=== PATIENT | female | born 2000 | race Two or more races ===

== ENCOUNTER 2021-08-20 05:06 | Emergency (ER) | payer BC, SELFPAY ==
[2021-08-20 05:13] VITALS: BP 124/71; BP 124/86; PULSE 110; PULSE 84; RESP 18; TEMP 36.9; O2SAT 98; O2SAT 99; BMI 21.9
--- NOTE | 2021-08-20 05:29 | ED.ABDPAIN ---
HPI - Abdominal Pain General Chief Complaint: Abdominal Pain Stated Complaint: N/V Time Seen by Provider: 08/20/21 05:28 Source: patient Mode of arrival: EMS Limitations: no limitations History of Present Illness HPI narrative: Nausea and vomiting for 7 days. MD elicited complaint: abdominal pain Onset (ago): day(s) Severity: moderate Exacerbating factors: eating Relieving factors: nothing Associated symptoms: nausea and vomiting Related Data Home Medications Medication Instructions Recorded Confirmed ondansetron 4 mg disintegrating 4 mg PO Q8H PRN 08/22/21 08/22/21 tablet pantoprazole 40 mg tablet,delayed 40 mg PO DAILY@0630 08/22/21 08/22/21 release (Protonix) Previous Rx's Medication Instructions Recorded escitalopram oxalate 5 mg tablet 10 mg PO BEDTIME 30 Days #60 tab 08/24/21 Allergies Allergy/AdvReac Type Severity Reaction Status Date / Time No Known Allergies Allergy Verified 08/20/21 05:30 Review of Systems Constitutional: Reports no additional constitutional complaints Eyes: Reports no additional eye complaints Denies dizziness Cardiovascular: Reports no additional cardiovascular complaints Respiratory: Reports as per HPI Gastrointestinal: Reports no additional gastrointestinal complaints Genitourinary: Reports no additional female genitourinary complaints Musculoskeletal: Reports no additional musculoskeletal complaints Skin/Breast: Denies rash Reports system reviewed and no additional complaints, except as documented, Denies dizziness and Denies Sensory deficit (Neuro) Psychiatric: Denies anxiety [facility] Past Medical History Medical History (Updated 08/28/21 @ 00:03 by Background Daemon) Migraine headache Social History Social History Patient Tobacco Use Status: Current everyday Tobacco user Tobacco use type: Smokeless Tobacco service: No Current occupational status: student Physical Exam ED Vital Signs: Vital Signs - 24 hr 08/20/21 05:13 Temperature 98.5 F Pulse Rate 84 Respiratory Rate 18 Blood Pressure 124/71 Pulse Oximetry 99 BMI result Body Mass Index 21.9 Const General: healthy appearing Nutritional Appearance: average body habitus Orientation/consciousness: oriented to person and patient oriented x3 Limitations: no limitations HENMT Head: Yes normal to inspection Ears: external ears normal General nose exam: Normal external nose present Mouth: Normal oral and palatal mucosa present and oropharynx normal Throat: Yes posterior oropharynx normal Eyes General: appearance normal, both eyes and all related structures Neck Neck: Yes normal visual inspection Chest Chest palpation & inspection: normal inspection of the chest Resp Auscultation: clear to auscultation bilaterally Cardio Jugular venous distension: no JVD Rate: regular rate Rhythm: regular rhythm Heart sounds: S1 normal heart sound present and S2 normal heart sound present GI Inspection: Yes normal to inspection Palpation (GI): Soft to palpation, nontender and No hepatosplenomegaly present Auscultation: normal bowel sounds General: Yes no CVA tenderness Back/Spine/Pelvis Back: no CVA tenderness Skin General skin exam: no rashes or lesions noted Neuro General: oriented to person and patient oriented x3 Cranial nerves: Yes CN's II-XII intact bilaterally Motor exam (neuro): 5/5 motor strength present throughout Sensory Exam: No Sensory deficit (Neuro) Extrem General: Yes normal to inspection Psych Appearance: grossly normal Course Reevaluation(s) Reevaluation #1: Patient getting hydrated and receiving zofran, awaiting labs Time: 06:54 Reevaluation #2: Awaiting for ua and urine Time: 07:08 MDM - Abdominal Pain Lab Data Result diagrams: 08/20/21 06:21 08/20/21 06:21 Labs: Lab Results 08/20/21 08/20/21 08/20/21 Range/Units 06:21 06:21 06:21 WBC 9.8 (4.8-10.8) X10*3/uL RBC 3.94 L (4.20-5.50) X10*6/uL Hgb 12.0 (12.0-16.0) g/dl Hct 35.3 L (37.0-47.0) % MCV 89.6 (80.0-98.0) fL MCH 30.5 (27.0-33.0) pg MCHC 34.0 (31.0-35.0) g/dl RDW 11.4 (11.0-16.0) % Plt Count 244 (160-400) X10*3/uL MPV 10.0 (9.4-12.3) fL Immature Gran % (Auto) 0.7 H (0.0-0.4) % Neut % (Auto) 79.9 H (45-73) % Lymph % (Auto) 15.5 L (20-40) % [place] % (Auto) 3.5 (2-11) % Eos % (Auto) 0.1 (0-4) % Baso % (Auto) 0.3 (0-2) % Lymph # (Auto) 1.5 (1.2-4.9) X10*3/uL [place] # (Auto) 0.3 (0.1-1.2) X10*3/uL Eos # (Auto) 0.0 (0.0-0.4) X10*3/uL Baso # (Auto) 0.0 (0.0-0.2) X10*3/uL Abs Immat Gran (auto) 0.07 H (0.00-0.03) X10*3/uL Absolute Neuts (auto) 7.9 (2.0-8.3) x10*3/uL Absolute Nucleated RBC 0.000 (0.0-0.012) X10*3/uL Nucleated RBC % (auto) 0.0 (0.0-0.2) /100WBC Sodium 139 (135-145) mmol/L Potassium 3.9 (3.3-5.1) mmol/L Chloride 107 (96-108) mmol/L Carbon Dioxide 22 (22-29) mmol/L Anion Gap 14 (12-20) BUN 12 (9-16) mg/dL Creatinine 0.66 (0.5-1.4) mg/dL Estim Creat Clear Calc 106.6 Estimated GFR > 60 Random Glucose 97 (60-115) mg/dL Calcium 8.9 (8.4-10.2) mg/dL Total Bilirubin 0.6 (0.0-1.0) mg/dL Direct Bilirubin 0.3 (0.0-0.5) mg/dL AST 20 (5-31) U/L ALT 23 (0-31) U/L Alkaline Phosphatase 55 (39-117) U/L Total Protein 6.5 (6.5-8.0) g/dL Albumin 4.2 (3.5-5.0) g/dL Lipase 25 (8-78) U/L Urine Color Urine Appearance Urine pH (5.0-8.0) Ur Specific [place] (1.005-1.025) Urine Protein (NEG-TRACE) MG/DL Urine Glucose (UA) (NEG) MG/DL Urine Ketones (NEG) MG/DL Urine Blood (NEG) Urine Nitrite (NEG) Ur Leukocyte Esterase (NEG) Urine RBC (0) /HPF Urine WBC (0-4) /HPF Ur Squamous Epith Cells /LPF Urine Bacteria /LPF Urine Test (NEGATIVE) COVID-19 (PERRY) Negative (Negative) COVID-19 Clin Com See Note 08/20/21 08/20/21 Range/Units 07:53 07:53 WBC (4.8-10.8) X10*3/uL RBC (4.20-5.50) X10*6/uL Hgb (12.0-16.0) g/dl Hct (37.0-47.0) % MCV (80.0-98.0) fL MCH (27.0-33.0) pg MCHC (31.0-35.0) g/dl RDW (11.0-16.0) % Plt Count (160-400) X10*3/uL MPV (9.4-12.3) fL Immature Gran % (Auto) (0.0-0.4) % Neut % (Auto) (45-73) % Lymph % (Auto) (20-40) % [place] % (Auto) (2-11) % Eos % (Auto) (0-4) % Baso % (Auto) (0-2) % Lymph # (Auto) (1.2-4.9) X10*3/uL [place] # (Auto) (0.1-1.2) X10*3/uL Eos # (Auto) (0.0-0.4) X10*3/uL Baso # (Auto) (0.0-0.2) X10*3/uL Abs Immat Gran (auto) (0.00-0.03) X10*3/uL Absolute Neuts (auto) (2.0-8.3) x10*3/uL Absolute Nucleated RBC (0.0-0.012) X10*3/uL Nucleated RBC % (auto) (0.0-0.2) /100WBC Sodium (135-145) mmol/L Potassium (3.3-5.1) mmol/L Chloride (96-108) mmol/L Carbon Dioxide (22-29) mmol/L Anion Gap (12-20) BUN (9-16) mg/dL Creatinine (0.5-1.4) mg/dL Estim Creat Clear Calc Estimated GFR Random Glucose (60-115) mg/dL Calcium (8.4-10.2) mg/dL Total Bilirubin (0.0-1.0) mg/dL Direct Bilirubin (0.0-0.5) mg/dL AST (5-31) U/L ALT (0-31) U/L Alkaline Phosphatase (39-117) U/L Total Protein (6.5-8.0) g/dL Albumin (3.5-5.0) g/dL Lipase (8-78) U/L Urine Color YELLOW Urine Appearance CLEAR Urine pH 5.5 (5.0-8.0) Ur Specific [place] 1.010 (1.005-1.025) Urine Protein NEG (NEG-TRACE) MG/DL Urine Glucose (UA) NEG (NEG) MG/DL Urine Ketones >=80 (NEG) MG/DL Urine Blood TRACE (NEG) Urine Nitrite NEG (NEG) Ur Leukocyte Esterase NEG (NEG) Urine RBC 0-2 (0) /HPF Urine WBC 0-2 (0-4) /HPF Ur Squamous Epith Cells TRACE /LPF Urine Bacteria NONE /LPF Urine Test NEGATIVE (NEGATIVE) COVID-19 (PERRY) (Negative) COVID-19 Clin Com Discharge Plan Discharge Clinical Impression: Gastritis, Nausea & vomiting Patient Disposition: Home, Self-Care Instructions: Gastritis (ED), Acute Nausea and Vomiting (ED) Prescriptions: No Action pantoprazole [Protonix] 40 mg tablet,delayed release (DR/EC) 40 mg PO DAILY@0630 0RF ondansetron 4 mg tablet,disintegrating 4 mg PO Q8H PRN (Reason: Nausea And Vomiting) 0RF escitalopram oxalate 5 mg Tablet 10 mg PO BEDTIME 30 Days Qty: 60 0RF Referrals: Physician,None [Primary Care Provider] - 1 week Interventions: ED Discharge Assessment Last Done: 08/20/21 08:49 Discharge Date/Time: 08/20/21 08:52
[2021-08-20] MEDS: 0.9 % Sodium Chloride 1,000 ML 999 ML IVCONT ×2 (06:22→06:31)
[2021-08-20] MEDS: ondansetron HCL 4 MG/2 ML VIAL IVPUSH (06:25)
[2021-08-20] MEDS: Pantoprazole Sodium 40 MG/10 ML VIAL IVPUSH (06:25)
[2021-08-20 06:38] LABS: MANUAL DIFF FLAG NO
[2021-08-20 06:48] LABS: Basophils Percent Auto 0.3 % (0-2); Eosinophils Percent Auto 0.1 % (0-4); Hematocrit 35.3 % (37.0-47.0); Imm Gran Abs Auto 0.07 X10*3/uL (0.00-0.03); Imm Gran Pct Auto 0.7 % (0.0-0.4); Lymphocytes Absolute Auto 1.5 X10*3/uL (1.2-4.9); Lymphocytes Percent Auto 15.5 % (20-40); Mean Corpuscular Hemoglobin 30.5 pg (27.0-33.0); Mean Corpuscular Volume 89.6 fL (80.0-98.0); Monocytes Absolute Auto 0.3 X10*3/uL (0.1-1.2); Monocytes Percent Auto 3.5 % (2-11); Neutrophils Absolute Auto 7.9 x10*3/uL (2.0-8.3); Neutrophils Percent Auto 79.9 % (45-73); Platelet Count 244 X10*3/uL (160-400); Red Blood Count 3.94 X10*6/uL (4.20-5.50); Red Cell Distribution Width 11.4 % (11.0-16.0); White Blood Count 9.8 X10*3/uL (4.8-10.8)
[2021-08-20 06:51] LABS: COVID-19 Test Negative (Negative); IDNOW Serial# 55D5AD1C
[2021-08-20 06:55] LABS: Alanine Aminotransferase 23 U/L (0-31); Albumin Level 4.2 g/dL (3.5-5.0); Alkaline Phosphatase 55 U/L (39-117); Anion Gap 14 (12-20); Aspartate Amino Transferase 20 U/L (5-31); Bilirubin Direct 0.3 mg/dL (0.0-0.5); Bilirubin Total 0.6 mg/dL (0.0-1.0); Blood Urea Nitrogen 12 mg/dL (9-16); Calcium 8.9 mg/dL (8.4-10.2); Carbon Dioxide 22 mmol/L (22-29); Chloride 107 mmol/L (96-108); Creatinine Clr Calc Pharmacy 106.6; Estimated Glomerular Filt Rate > 60; Glucose Random 97 mg/dL (60-115); Lipase 25 U/L (8-78); Potassium 3.9 mmol/L (3.3-5.1); Sodium 139 mmol/L (135-145); Total Protein 6.5 g/dL (6.5-8.0)
[2021-08-20 07:12] VITALS: BP 108/63; PULSE 104; O2SAT 100
[2021-08-20 07:59] LABS: Appearance Urine CLEAR; Color Urine YELLOW; Glucose Urine UA NEG (NEG); Leukocyte Esterase Urine NEG (NEG); Nitrite Urine NEG (NEG); PH 5.5 (5.0-8.0); UACC Culture Trigger NO; Urine Blood TRACE (NEG); Urine Ketones >=80 MG/DL (NEG); Urine Protein NEG (NEG-TRACE)
[2021-08-20 08:01] LABS: UPreg QC Valid YES; Urine Pregnancy NEGATIVE (NEGATIVE)
[2021-08-20] MEDS: Ondansetron ODT 4 MG TAB.RAPDIS TRANSLINGU (08:37)
[2021-08-20 09:00] LABS: RBC Urine 0-2 /HPF (0); Squamous Epithelial Cell Urine TRACE /LPF; WBC Urine 0-2 /HPF (0-4)
== END 2021-08-20 08:52 | disposition home or self-care (01) ==
PROVIDERS: Emergency Provider Emergency Medicine
DX: K29.70 Gastritis, unspecified, without bleeding (principal); R11.2 Nausea with vomiting, unspecified; Z20.822 Contact with and (suspected) exposure to COVID-19; F17.200 Nicotine dependence, unspecified, uncomplicated
CPT/HCPCS: 36415; 80048; 80076; 81001; 81025; 83690; 85025; 87635; 96361; 96374; 96375; 99284; J2405

== ENCOUNTER 2021-08-22 07:53 | Observation (INO) | payer BC, SELFPAY ==
[2021-08-22] VITALS (12 sets, daily range): BP systolic 98–120; BP diastolic 53–88; PULSE 85–124; RESP 14–22; TEMP 36.6–37.3; O2SAT 95–100; BMI 21.7
--- NOTE | 2021-08-22 08:09 | ED.NAVMDI ---
HPI - Nausea/Vomiting/Diarrhea General Chief complaint: Nausea/Vomiting/Diarrhea Stated complaint: vomiting with blood Time Seen by Provider: 08/22/21 08:06 Source: patient and EMS Mode of arrival: EMS Limitations: no limitations History of Present Illness HPI Narrative: 21-year-old female return to the emergency department for evaluation of persistent vomiting. Patient was seen and evaluated in the emergency department for 5 days of vomiting, patient was sent home on Zofran and Protonix return back today for persistent vomiting, patient claimed that she cannot take any p.o., normal bowel movement, normal urination, no history of drinking alcohol or using drugs in particular no use of marijuana. Patient reported that the vomit sometimes containing streaks of blood. Patient otherwise decline abdominal pain, no diarrhea, no recent travel. 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 Never had intra-abdominal surgery. Related Data Previous Rx's Medication Instructions Recorded ondansetron 4 mg disintegrating 4 mg PO Q8H 4 Days #12 tab 08/20/21 tablet pantoprazole 40 mg tablet,delayed 40 mg PO DAILY #20 tab 08/20/21 release (Protonix) Allergies Allergy/AdvReac Type Severity Reaction Status Date / Time No Known Allergies Allergy Verified 08/20/21 05:30 Review of Systems Review of Systems: All other systems are reviewed and are negative Constitutional: Reports as per HPI and Reports no additional constitutional complaints Eyes: Reports as per HPI and Reports no additional eye complaints Reports system reviewed and no additional complaints, except as documented Cardiovascular: Reports as per HPI and Reports no additional cardiovascular complaints Respiratory: Reports as per HPI and Reports no additional respiratory complaints Gastrointestinal: Reports as per HPI and Reports no additional gastrointestinal complaints Genitourinary: Reports no additional female genitourinary complaints Musculoskeletal: Reports no additional musculoskeletal complaints Skin/Breast: Reports system reviewed and no additional complaints, except as docu Psychiatric: Reports no additional psychiatric complaints Endocrine: Reports no additional endocrine complaints Hematologic/Lymphatic: Reports no additional hematologic/lymphatic complaints Allergic/Immunologic: Reports no additional allergic/immunologic complaints Reports system reviewed and no additional complaints, except as documented and Reports Abnormal speech present [facility] Social History Social History Advance Directives: No Advance Directives Information Provided: No Physical Exam Vital Signs: Vital Signs: Last Vital Signs Temp 98.7 F 08/22/21 08:36 Pulse 100 08/22/21 08:36 Resp 14 08/22/21 08:36 BP 117/71 08/22/21 08:36 Pulse Ox 98 08/22/21 08:36 BMI result Body Mass Index 21.7 Vital signs have been reviewed as appeared to be correct. Blood pressure normal. Heart rate normal. Respiration rate normal. Temperature normal. Oxygen saturation normal. Appearance: Alert. Oriented X3. No acute distress. Head: Normal external exam. Normocephalic. Atraumatic. No [place] signs noted. No raccoon eyes noted Eyes: PERRLA. EOMI. Conjunctiva and sclera normal. Eyelids normal. ENT: TM's Normal. Pharynx normal. Uvula midline. Moist mucous membranes. No trismus noted. No drooling noted. No muffled voice noted. Neck: Normal inspection. Neck supple. FROM. No adenopathy. Thyroid Normal. No meningeal signs. No neck mass noted. CVS: Normal heart rate and rhythm. Heart sound normal. No murmurs noted. Pulses normal throughout. Respiratory: No respiratory distress. Painless inspiration. Breath sounds normal. No wheezes/rales/rhonchi noted. Chest nontender. No accessory muscle usage noted or decreased air movement noted. Abdomen: Soft and nontender. Bowel sounds normal in all 4 quadrants. No distention noted. No organomegaly noted. No visible injury noted. Back: No CVA tenderness. Full range of motion noted. Skin: Skin warm and dry. Normal skin color. Normal skin turgor. No rashes/lesions/lacerations noted. Extremities: No lower extremity edema. Extremities exhibit normal range of motion. Extremities nontender. Neuro: Oriented X 3. Cranial nerve exam: II-XII are grossly intact No motor deficit. No sensory deficit. Reflexes normal. Course Course Course Narrative: Assessment and plan. 21-year-old female return to the emergency department for intractable vomiting, patient declined any history alcohol/drug abuse, no abdominal pain or tenderness, patient still feeling nauseous and vomiting in the ED despite IV antinausea medication with hydration. Will admit the patient for intractable vomiting. MDM - Nausea/Vomiting/Diarrhea Lab Data Attestation: I reviewed the patient's lab results. Result diagrams: 08/22/21 08:22 08/22/21 08:22 Labs: Lab Results 08/22/21 08/22/21 Range/Units 08:22 08:22 WBC 9.1 (4.8-10.8) X10*3/uL RBC 4.03 L (4.20-5.50) X10*6/uL Hgb 12.5 (12.0-16.0) g/dl Hct 35.9 L (37.0-47.0) % MCV 89.1 (80.0-98.0) fL MCH 31.0 (27.0-33.0) pg MCHC 34.8 (31.0-35.0) g/dl RDW 11.4 (11.0-16.0) % Plt Count 252 (160-400) X10*3/uL MPV 9.8 (9.4-12.3) fL Immature Gran % (Auto) 0.3 (0.0-0.4) % Neut % (Auto) 81.0 H (45-73) % Lymph % (Auto) 15.1 L (20-40) % [place] % (Auto) 3.3 (2-11) % Eos % (Auto) 0.1 (0-4) % Baso % (Auto) 0.2 (0-2) % Lymph # (Auto) 1.4 (1.2-4.9) X10*3/uL [place] # (Auto) 0.3 (0.1-1.2) X10*3/uL Eos # (Auto) 0.0 (0.0-0.4) X10*3/uL Baso # (Auto) 0.0 (0.0-0.2) X10*3/uL Abs Immat Gran (auto) 0.03 (0.00-0.03) X10*3/uL Absolute Neuts (auto) 7.4 (2.0-8.3) x10*3/uL Absolute Nucleated RBC 0.000 (0.0-0.012) X10*3/uL Nucleated RBC % (auto) 0.0 (0.0-0.2) /100WBC Sodium 140 (135-145) mmol/L Potassium 4.4 (3.3-5.1) mmol/L Chloride 106 (96-108) mmol/L Carbon Dioxide 24 (22-29) mmol/L Anion Gap 14 (12-20) BUN 10 (9-16) mg/dL Creatinine 0.76 (0.5-1.4) mg/dL Estim Creat Clear Calc 92.6 Estimated GFR > 60 Random Glucose 116 H (60-115) mg/dL Calcium 9.4 (8.4-10.2) mg/dL Total Bilirubin 0.8 (0.0-1.0) mg/dL Direct Bilirubin 0.3 (0.0-0.5) mg/dL AST 19 (5-31) U/L ALT 23 (0-31) U/L Alkaline Phosphatase 60 (39-117) U/L Total Protein 7.1 (6.5-8.0) g/dL Albumin 4.5 (3.5-5.0) g/dL Lipase 34 (8-78) U/L Discharge Plan Discharge Clinical Impression: Intractable vomiting Patient Disposition: Admitted As Inpatient Prescriptions: No Action pantoprazole [Protonix] 40 mg tablet,delayed release (DR/EC) 40 mg PO DAILY Qty: 20 0RF ondansetron 4 mg tablet,disintegrating 4 mg PO Q8H 4 Days Qty: 12 0RF
[2021-08-22] MEDS: Famotidine/PF 20 MG/2 ML VIAL IVPUSH ×2 (08:30→13:39)
[2021-08-22] MEDS: 0.9 % Sodium Chloride 1,000 ML 999 ML IV (08:30)
[2021-08-22] MEDS: ondansetron HCL 4 MG/2 ML VIAL IVPUSH ×3 (08:30→22:24)
[2021-08-22 08:31] LABS: MANUAL DIFF FLAG NO
[2021-08-22 08:40] LABS: Basophils Percent Auto 0.2 % (0-2); Eosinophils Percent Auto 0.1 % (0-4); Hematocrit 35.9 % (37.0-47.0); Hemoglobin 12.5 g/dl (12.0-16.0); Imm Gran Abs Auto 0.03 X10*3/uL (0.00-0.03); Imm Gran Pct Auto 0.3 % (0.0-0.4); Lymphocytes Absolute Auto 1.4 X10*3/uL (1.2-4.9); Lymphocytes Percent Auto 15.1 % (20-40); Mean Corpuscular HGB Conc 34.8 g/dl (31.0-35.0); Mean Corpuscular Volume 89.1 fL (80.0-98.0); Mean Platelet Volume 9.8 fL (9.4-12.3); Monocytes Absolute Auto 0.3 X10*3/uL (0.1-1.2); Monocytes Percent Auto 3.3 % (2-11); Neutrophils Absolute Auto 7.4 x10*3/uL (2.0-8.3); Platelet Count 252 X10*3/uL (160-400); Red Blood Count 4.03 X10*6/uL (4.20-5.50); Red Cell Distribution Width 11.4 % (11.0-16.0); White Blood Count 9.1 X10*3/uL (4.8-10.8)
[2021-08-22 08:47] LABS: Alanine Aminotransferase 23 U/L (0-31); Anion Gap 14 (12-20); Aspartate Amino Transferase 19 U/L (5-31); Bilirubin Direct 0.3 mg/dL (0.0-0.5); Bilirubin Total 0.8 mg/dL (0.0-1.0); Blood Urea Nitrogen 10 mg/dL (9-16); Calcium 9.4 mg/dL (8.4-10.2); Carbon Dioxide 24 mmol/L (22-29); Chloride 106 mmol/L (96-108); Creatinine Clr Calc Pharmacy 92.6; Estimated Glomerular Filt Rate > 60; Glucose Random 116 mg/dL (60-115); Potassium 4.4 mmol/L (3.3-5.1); Sodium 140 mmol/L (135-145)
[2021-08-22 08:48] LABS: Albumin Level 4.5 g/dL (3.5-5.0); Alkaline Phosphatase 60 U/L (39-117); Lipase 34 U/L (8-78); Total Protein 7.1 g/dL (6.5-8.0)
--- NOTE | 2021-08-22 10:19 | PHA.MEDREC ---
Pharmacy Consult ? Medication Reconciliation Pharmacy has completed the medication reconciliation.
--- NOTE | 2021-08-22 11:42 | P.HPHOSP_ITS ---
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 Starting 3 weeks ago, she was having episode of vomitting mainly in the morning but the last 3 days or so has been having intractable nausea and vomitting almost every 10 to 15 minutes, theer is no assocated abdominal pain, not associated with food. She does not drink, use drugs or marijuana. She was seen in ED 2 days earlier and discharge with oral zofran and Protonix with litlle relief and overnight was constantly throwing up so came back to the ED.. test 2 days ago was negative. As result of the nausea and vomitting she lost nearly all apetite and hardly eating believed she has lost 7 to 8 Ib.. Labs are otherwise unremarkable Review of Systems Review of Systems: Gen: no fever Resp: no sob, no cough CV: no chest, no KELSEY, no leg edema GI: + n/v, no abd pain Neuro: No confusion Yes all other systems are reviewed and are negative [facility] Medical History (Updated 08/22/21 @ 14:35 by Monique Kebede MD) Migraine headache Pertinent family history: She reports no family history of chronic abdominal issues, but thinks her mom sufffered Helicobateria related GI issue at some point Social History Patient Tobacco Use Status: Current everyday Tobacco user Tobacco use type: Smokeless Tobacco Meds Allergies Allergy/AdvReac Type Severity Reaction Status Date / Time No Known Allergies Allergy Verified 08/20/21 05:30 Active Medications: Current Medications Famotidine (Famotidine/Pf 20 Mg/2 Ml Vial) 20 mg IVPUSH BID TALIA Dextrose/Sodium Chloride (D51/2ns) 1,000 mls @ 100 mls/hr IVCONT .Q10H TALIA Ondansetron HCl (Ondansetron Hcl 4 Mg/2 Ml Vial) 4 mg IVPUSH Q8H PRN PRN Reason: Nausea and Vomiting Pharmacy Consult (Consult Rx Perform Med Rec) 1 each MISCELLANE ONCE PRN PRN Reason: Consult order Sodium Chloride (0.9 % Sodium Chloride Flush 3 Ml Syringe) 3 ml IVFLUSH QSHIFT [facility] Home Medications Medication Instructions Recorded Confirmed Last Taken Type ondansetron 4 mg disintegrating 4 mg PO Q8H PRN 08/22/21 08/22/21 08/22/21 His tory tablet pantoprazole 40 mg tablet,delayed 40 mg PO DAILY@0630 08/22/21 08/22/21 08/22/21 History release (Protonix) Physical Exam Vital Signs and Narrative: Vital Signs: Last Vital Signs Temp 98.7 F 08/22/21 08:36 Pulse 100 08/22/21 08:36 Resp 14 08/22/21 08:36 BP 117/71 08/22/21 08:36 Pulse Ox 98 08/22/21 08:36 BMI result Body Mass Index 21.7 Const: Other: Constitutional: Alert, in no distress Mental Status: Oriented to person, place and time. Eyes: Pupils are equal, round and reactive to light. Ear, Nose and Throat: essentially normal Respiratory: Clear to auscultation. No wheezing, rales or rhonchi. Cardiovascular: S1 S2 regular. No murmurs, rubs or gallops. Gastrointestinal: Abdomen soft, non-tender, non-distended. Normal bowel sounds.? Neurologic: Cranial nerves II-XII grossly intact. No focal neurological deficits. Moves all extremities spontaneously.? Skin: No rashes or lesions.? Musculoskeletal: No cyanosis or clubbing. Psychiatric: Normal mood and affect? Results Labs CBC and Chem 7: 08/22/21 08:22 08/22/21 08:22 Labs: Laboratory Results - last 24 hr 08/22/21 08/22/21 08:22 08:22 MCV 89.1 MCH 31.0 MCHC 34.8 RDW 11.4 Plt Count 252 MPV 9.8 Immature Gran % (Auto) 0.3 Neut % (Auto) 81.0 H Lymph % (Auto) 15.1 L [place] % (Auto) 3.3 Eos % (Auto) 0.1 Baso % (Auto) 0.2 Lymph # (Auto) 1.4 [place] # (Auto) 0.3 Eos # (Auto) 0.0 Baso # (Auto) 0.0 Abs Immat Gran (auto) 0.03 Absolute Neuts (auto) 7.4 Absolute Nucleated RBC 0.000 Nucleated RBC % (auto) 0.0 Anion Gap 14 Estim Creat Clear Calc 92.6 Estimated GFR > 60 Random Glucose 116 H Calcium 9.4 Total Bilirubin 0.8 Direct Bilirubin 0.3 AST 19 ALT 23 Alkaline Phosphatase 60 Total Protein 7.1 Albumin 4.5 Lipase 34 Assessment and Plan (1) Intractable vomiting: Status: Acute (2) Anxiety: Status: Acute Plan health with now intractable nausea and vomitting associated with weight loss. Plan: Hydrate, antiemetics, IV Pepcid, GI eval given severe nature. Check Utox for marijuana Quality Stroke Does the patient have a stroke diagnosis?: No VTE Prior VTE?: No VTE Risk Level:: Medical - low VTE Device Contraindication: Treatment Not Indicated VTE Drug Contraindication: Treatment Not Indicated
[2021-08-22 13:12] LABS: COVID-19 Test Negative (Negative)
[2021-08-22] MEDS: Dextrose 5 % and 0.45 % NaCl 1,000 ML 100 ML IVCONT ×2 (13:22→22:27)
--- NOTE | 2021-08-22 13:36 | P.CNGI_ITS ---
History of Present Illness Data of Consult Service Date: 08/22/21 Requesting physician: Sage Romo Primary Care Provider: None Physician HPI Reason for consult: nausea and vomiting 21 year old [place] female (international student from [employer]) with SJ seen at [facility] ED on 08/22/21 with intractable nause and vomitting. Pt reports having episodes of vomiting in the morning since the past 3 weeks. She has been having intractable nausea and vomiting almost every 10 to 15 minutes for the past 3 days. Pt denies association of symptoms with food. She complains of upper abdominal pain after several bouts of vomiting. She denies ETOH or drug abuse. She admits to smoking marijuana and vaping a few times a week. Pt was seen in ED 2 days earlier and discharge with oral zofran and Protonix with minimal relief and overnight? was constantly throwing up. She came back to the ED. test 2 days ago was negative. As result of the nausea and vomiting she has no appetite and her PO intake has been minimal and and she has lost 7 to 8 Ib. Labs in the ED were normal. Utox positive for cannabis, however reports very occasional use. Pt was admitted for further management. Pt admitted to significant anxiety due to her studies and social issues. 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 anxiety has been worsening. Pt has had several stressful events during her college career and has been increasingly isolated due to the pandemic, has struggled to make friends at college, has not been home in [place] x 2 years. Pt is ambitious and a perfectionist, wants to graduate with highest honors and go to grad school for engineering. Feels she has to get straight As. She also worries about the financial burden of her student loans on her mom. Pt says ?all I do is study,? 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 Pt admits to a personal hx of Migraine HILARIO and her Mom and sister also have Migraine HAs.. Review of Systems Review of Systems: Gen: no fever Resp: no sob, no cough CV: no chest, no KELSEY, no leg edema GI: + n/v, no abd pain Neuro: No confusion Yes all other systems are reviewed and are negative Constitutional: Constitutional: Reports fever(s) Cardiovascular: Cardiovascular: Denies chest pain and Denies dyspnea Respiratory: Respiratory: Denies dyspnea Gastrointestinal: Gastrointestinal: Reports abdominal pain, Reports nausea and Reports vomiting Psychiatric: Psychiatric: Reports anxiety [facility] Past Medical History Medical History (Updated 08/27/21 @ 11:27 by Monique Kebede MD) Migraine headache Social History Social History Patient Tobacco Use Status: Current everyday Tobacco user Tobacco use type: Smokeless Tobacco service: No Current occupational status: student Meds Allergies Allergy/AdvReac Type Severity Reaction Status Date / Time No Known Allergies Allergy Verified 08/20/21 05:30 Active Medications: Current Medications Famotidine (Famotidine/Pf 20 Mg/2 Ml Vial) 20 mg IVPUSH BID TALIA Dextrose/Sodium Chloride (D51/2ns) 1,000 mls @ 100 mls/hr IVCONT .Q10H [facility] Last Admin: 08/22/21 13:22 Dose: 100 mls/hr Documented by: Ondansetron HCl (Ondansetron Hcl 4 Mg/2 Ml Vial) 4 mg IVPUSH Q8H PRN PRN Reason: Nausea and Vomiting Pharmacy Consult (Consult Rx Perform Med Rec) 1 each MISCELLANE ONCE PRN PRN Reason: Consult order Sodium Chloride (0.9 % Sodium Chloride Flush 3 Ml Syringe) 3 ml IVFLUSH QSHIFT [facility] Home Medications Medication Instructions Recorded Confirmed Last Taken Type ondansetron 4 mg disintegrating 4 mg PO Q8H PRN 08/22/21 08/22/21 08/22/21 History tablet pantoprazole 40 mg tablet,delayed 40 mg PO DAILY@0630 08/22/21 08/22/21 08/22/21 History release (Protonix) Physical Exam Vital Signs: Vital Signs: Last Vital Signs Temp 98.7 F 08/22/21 08:36 Pulse 97 08/22/21 12:22 Resp 18 08/22/21 12:22 BP 98/53 L 08/22/21 12:22 Pulse Ox 97 08/22/21 12:22 BMI result Body Mass Index 21.7 Const: General: healthy appearing, no acute distress and anxious Orientation/consciousness: patient oriented x3 Limitations: no limitations HEENT: Head: Yes normal to inspection Ears: hearing grossly normal bilaterally Mouth: Normal oral and palatal mucosa present Eyes: Sclerae: sclerae normal Pupils: Equal, round and reactive pupils present Neck: Neck: Yes normal visual inspection Chest: Chest palpation & inspection: normal inspection of the chest Resp: Effort & Inspection: normal respiratory effort Auscultation: clear to auscultation bilaterally Cardio: Palpation: normal PMI Rate: regular rate Rhythm: regular rhythm Heart sounds: S1 normal heart sound present, S2 normal heart sound present and no murmurs GI: Palpation (GI): Soft to palpation, nontender and No hepatosplenomegaly present Auscultation: normal bowel sounds Rectal Exam - Female: deferred Skin: General skin exam: no rashes or lesions noted Neuro: General: patient oriented x3, gait normal and moves all extremities Cranial nerves: Yes Equal, round and reactive pupils present Psych: Appearance: grossly normal Mental Status: mental status grossly normal Affect: Anxious affect present Attitude: cooperative Insight: Good insight present (Psych) Results Labs CBC & Chem 7: 08/22/21 08:22 08/22/21 08:22 Labs: Short CBC 08/22/21 Range/Units 08:22 WBC 9.1 (4.8-10.8) X10*3/uL Hgb 12.5 (12.0-16.0) g/dl Hct 35.9 L (37.0-47.0) % Plt Count 252 (160-400) X10*3/uL BMP 08/22/21 08:22 Sodium 140 Potassium 4.4 Chloride 106 Carbon Dioxide 24 BUN 10 Creatinine 0.76 Calcium 9.4 Liver Function 08/22/21 Range/Units 08:22 Total Bilirubin 0.8 (0.0-1.0) mg/dL Direct Bilirubin 0.3 (0.0-0.5) mg/dL AST 19 (5-31) U/L ALT 23 (0-31) U/L Alkaline Phosphatase 60 (39-117) U/L Albumin 4.5 (3.5-5.0) g/dL Assessment and Plan (1) Intractable vomiting: Status: Acute (2) SJ (generalized anxiety disorder): Status: Acute Plan 21 year old [place] female with SJ, Migraine HAs admitted with intractable nausea and vomiting with poor PO intake and wt loss of 7 to 8 lbs over the past 3 weeks. Pt admits to having increased anxiety and excessive stress related to her studies and social situation. Her symptoms may be related to PUD, gastritis, new onset of cyclical vomiting syndrome or related to generalized anxiety disorder. RECOMMENDATIONS: 1. Proceed with EGD for further evaluation. Procedure and potential complications were reviewed with the patient. 2. Agree with IV PPI and hydration with IV fluids 3. Pt will need evaluation by Psyche for management of her anxiety after EGD. Procedures Date of Service Date of Service: 08/22/21
[2021-08-22 14:28] LABS: Appearance Urine CLEAR; Color Urine YELLOW; Glucose Urine UA NEG (NEG); Leukocyte Esterase Urine NEG (NEG); Nitrite Urine NEG (NEG); Specific Gravity - Urine >= 1.030 (1.005-1.025); UACC Culture Trigger NO; Urine Blood TRACE (NEG); Urine Ketones >=80 MG/DL (NEG); Urine Protein TRACE MG/DL (NEG-TRACE)
[2021-08-22 14:31] LABS: Amphetamine Screen Urine Not Detected (Not Detect); Barbiturates, Urine Not Detected (Not Detect); Benzodiazepines Screen Urine Not Detected (Not Detect); Cannabinoid Screen Urine POSITIVE (Not Detect); Cocaine Screen Urine Not Detected (Not Detect); Fentanyl, urine Not Detected (Not Detect); Opiate Screen Urine Not Detected (Not Detect); Phencyclidine Screen Urine Not Detected (Not Detect)
[2021-08-22 14:32] LABS: UPreg QC Valid YES; Urine Pregnancy NEGATIVE (NEGATIVE)
[2021-08-22 14:54] LABS: Squamous Epithelial Cell Urine 2+ /LPF
--- NOTE | 2021-08-22 15:01 | PM.OP ---
Brief Operative Note Date of Service: 08/22/21 Pre-op diagnosis: Nausea and vomiting Post-op diagnosis: other (antral gastritis) Procedure: FLEXIBLE TRANSORAL UPPER GASTROINTESTINAL ENDOSCOPY WITH BIOPSIES Consent: Indications for the procedure and potential complications of bleeding, perforation, reaction to medications and missed diagnosis were discussed with the patient and informed consent was obtained. Instrument: Olympus GIF H 190 mid size upper endoscope Monitoring: Vital signs and clinical assessment, continuous EKG monitoring, Pulse oximetry, Carbon Dioxide monitoring and blood pressure monitoring were done throughout the procedure. Procedure: The patient was placed in the left lateral decubitis position and pre-procedure medications were administered and a bite block was placed. The endoscope was inserted into the mouth and advanced under direct vision to the third part of duodenum. A careful inspection was made as the upper endoscope was withdrawn including a retroflexed examination of the proximal stomach; Findings and interventions are described below. Findings: Larynx: Normal - ET tube in place Esophagus: GE junction at 38 cms. No esophagitis or Batres's. Stomach: Minimal gastric erythema. Biopsies were obtained to check for H Pylori. Grade 2 flap valve on retroflexed examination of the cardia. Duodenum: Normal bulb and descending duodenum. Biopsies obtained from 3rd part of duodenum to check for celiac sprue Intervention: Biopsies as noted above Impression and Post Procedure Diagnosis: Endoscopy Findings: STOMACH: Minimal antral gastritis DUODENUM: Normal - biopsied to check for celiac sprue No source found for nausea and vomiting. Patient's symptoms can be due to anxiety, idiopathic gastroparesis or cyclical vomiting symdrome Plan: Await pathology results. [place] of Promethazine and anti-anxiety medication for nausea and vomiting Patient to schedule a FU appointment in the GI Clinic with Monique Kebede M.D. Consider referral for counseling for anxiety. If her symptoms persist, pt can be scheduled for further evaluation with a Gastric Emptying Study once her acute symptoms subside. Surgeon: Monique Kebede MD Anesthesia: PRIYAA (Dr Katz) Was an Ribbon Lapper Tender used for this Procedure?: No Ribbon Lapper Tender: Bridgette Negrete Estimated blood loss (mL): 0 Pathology: other (A- SMALL BOWEL BIOPSIES B- ANTRAL BIOPSIES - R/O H.PYLORI) Condition: stable Disposition: PACU
[2021-08-22 15:03] LABS: Bacteria Urine TRACE /LPF; Mucus Urine 1+ /LPF
--- NOTE | 2021-08-22 15:12 | P.OP_ITS ---
Operative Note Operative Note Date of Service: 08/22/21 Narrative: Pre-op diagnosis: Nausea and vomiting Post-op diagnosis:?other (antral gastritis) Procedure: FLEXIBLE TRANSORAL UPPER GASTROINTESTINAL ENDOSCOPY WITH BIOPSIES Consent:?Indications for the procedure and potential complications of bleeding, perforation, reaction to medications and missed diagnosis were discussed with the patient and informed consent was obtained. Instrument:?Olympus GIF H 190 mid size upper endoscope Monitoring: Vital signs and clinical assessment, continuous EKG monitoring, Pulse oximetry, Carbon Dioxide monitoring and blood pressure monitoring were done throughout the procedure. Procedure:?The patient was placed in the left lateral decubitis position and pre-procedure medications were administered and a bite block was placed. The endoscope was inserted into the mouth and advanced under direct vision to the third part of duodenum. A careful inspection was made as the upper endoscope was withdrawn including a retroflexed examination of the proximal stomach; Findings and interventions are described below. Findings: Larynx:? Normal?- ET tube in place Esophagus: GE junction at 38 cms. No esophagitis or Batres's. Stomach: Minimal gastric erythema. Biopsies were obtained to check for H Pylori. Grade 2 flap valve on retroflexed examination of the cardia. Duodenum: Normal bulb and descending duodenum.? Biopsies obtained from 3rd part of duodenum to check for celiac sprue Intervention: Biopsies as noted above Impression and Post Procedure Diagnosis: Endoscopy Findings: STOMACH: Minimal antral gastritis DUODENUM: Normal - biopsied to check for celiac sprue No source found for nausea and vomiting. Patient's symptoms can be due to anxiety, idiopathic gastroparesis or cyclical vomiting symdrome Plan: Await pathology results. [place] of Promethazine and anti-anxiety medication for nausea and vomiting Patient to schedule a FU appointment in the GI Clinic with Monique Kebede M.D. Consider referral for counseling for anxiety. If her symptoms persist, pt can be scheduled for further evaluation with a Gastric Emptying Study once her acute symptoms subside. Surgeon: Monique Kebede MD Anesthesia:?AUDELIA (Dr Katz) Was an Lead Supply Worker used for this Procedure?:?No Lead Supply Worker:?Bridgette Negrete Estimated blood loss (mL):?0 Pathology:?other (A- SMALL BOWEL BIOPSIES? B- ANTRAL BIOPSIES - R/O H.PYLORI) Condition:?stable Disposition:?PACU
[2021-08-22] MEDS: Pantoprazole Sodium 40 MG/10 ML VIAL IVPUSH (16:25)
[2021-08-23] MEDS: Pantoprazole Sodium 40 MG/10 ML VIAL IVPUSH ×2 (06:27→16:11)
[2021-08-23 07:23] VITALS: BP 92/47; PULSE 87; RESP 20; TEMP 36.2; O2SAT 100
[2021-08-23] MEDS: Dextrose 5 % and 0.45 % NaCl 1,000 ML 100 ML IVCONT ×2 (07:36→17:38)
[2021-08-23 07:37] VITALS: BP 118/82
--- NOTE | 2021-08-23 08:42 | HO.POSTANES ---
Post Anesthesia Evaluation Post Anesthesia Evaluation Vital Signs: Vital Signs Temp Pulse Resp BP Pulse Ox 08/23/21 07:37 118/82 08/23/21 07:23 97.1 F 87 20 92/47 L 100 08/22/21 23:24 98.1 F 90 14 120/66 98 Anesthesia: Monitored Mental Status: Awake Pain Control: Satisfactory Nausea/Vomiting: None Hydration: Adequate Anesthesia-Related Issues: No Anes. Related Issues
--- NOTE | 2021-08-23 10:16 | HO.PM.IMPN ---
Subjective Subjective Date of Service: 08/23/21 Interval History: f/u intractable n/v feels better, but still with N/V s/p EGD yest showing minimal gastritis Review of Systems +n/v, nothing else Physical Exam Vital Signs: Vital Signs: Last Vital Signs Temp 97.1 F 08/23/21 07:23 Pulse 87 08/23/21 07:23 Resp 20 08/23/21 07:23 BP 118/82 08/23/21 07:37 Pulse Ox 100 08/23/21 07:23 BMI result Body Mass Index 21.7 Const: Other: General: AO X 3, no acute distress Resp: CTA bilateral CVS: S1,S2,RRR GI: +BS, NT, no distention Skin: No rash Neuro: motor grossly intact Psych: appropriate affect Objective Data Active Medications Dextrose/Sodium Chloride (D51/2ns) 1,000 mls @ 100 mls/hr IVCONT .Q10H [facility] Last Admin: 08/23/21 07:36 Dose: 100 mls/hr Documented by: MAHAD Ondansetron HCl (Ondansetron Hcl 4 Mg/2 Ml Vial) 4 mg IVPUSH Q8H PRN PRN Reason: Nausea and Vomiting Last Admin: 08/22/21 22:24 Dose: 4 mg Documented by: ELVIA Pantoprazole Sodium (Pantoprazole Sodium 40 Mg/10 Ml Vial) 40 mg IVPUSH BID@0630,1630 [facility] Last Admin: 08/23/21 06:27 Dose: 40 mg Documented by: ELVIA Pharmacy Consult (Consult Rx Perform Med Rec) 1 each MISCELLANE ONCE PRN PRN Reason: Consult order Sodium Chloride (0.9 % Sodium Chloride Flush 3 Ml Syringe) 3 ml IVFLUSH QSHIFT [facility] Last Admin: 08/23/21 06:42 Dose: Not Given Documented by: MARIA DEL CARMEN Non-Admin Reason: IV Running Labs CBC & Chem 7: 08/22/21 08:22 08/22/21 08:22 Labs: Laboratory Results - last 24 hr 08/22/21 08/22/21 08/22/21 12:46 14:02 14:02 Urine Color Urine Appearance Urine pH Ur Specific [place] Urine Protein Urine Glucose (UA) Urine Ketones Urine Blood Urine Nitrite Ur Leukocyte Esterase Urine RBC Urine WBC Ur Squamous Epith Cells Urine Bacteria Urine Mucus Urine Test NEGATIVE Urine Opiates Screen Not Detected Urine Fentanyl Screen Not Detected Ur Barbiturates Screen Not Detected Ur Phencyclidine Scrn Not Detected Ur Amphetamines Screen Not Detected U Benzodiazepines Scrn Not Detected Urine Cocaine Screen Not Detected U Marijuana (THC) Screen POSITIVE H COVID-19 (PERRY) Negative COVID-19 Clin Com See Note 08/22/21 14:02 Urine Color YELLOW Urine Appearance CLEAR Urine pH 6.0 Ur Specific [place] >= 1.030 H Urine Protein TRACE Urine Glucose (UA) NEG Urine Ketones >=80 Urine Blood TRACE Urine Nitrite NEG Ur Leukocyte Esterase NEG Urine RBC 1-4 Urine WBC 1-4 Ur Squamous Epith Cells 2+ Urine Bacteria TRACE Urine Mucus 1+ Urine Test Urine Opiates Screen Urine Fentanyl Screen Ur Barbiturates Screen Ur Phencyclidine Scrn Ur Amphetamines Screen U Benzodiazepines Scrn Urine Cocaine Screen U Marijuana (THC) Screen COVID-19 (PERRY) COVID-19 Clin Com Assessment and Plan (1) Anxiety: Status: Acute (2) Intractable vomiting: Status: Acute Plan health with now intractable nausea and vomitting associated with weight loss. Utox is + canabis. 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 Psych consult for anxiety management Quality Stroke Does the patient have a stroke diagnosis?: No VTE Prior VTE?: No VTE Risk Level:: Medical - low VTE Device Contraindication: Treatment Not Indicated VTE Drug Contraindication: Treatment Not Indicated
--- NOTE | 2021-08-23 14:45 | MHC.CM.PN ---
Addendum entered by Christelle Matthews 08/24/21 13:18: DC HELD YESTERDAY DUE TO NAUSEA / VOMITING / ANXIETY. PT WILL DC HOME TODAY [employer] PROVIDED, THEY WILL BRING HER TO THE PHARMACY AND THEN HOME SHE WAS ALSO PROVIDED WITH A NOTE FOR SCHOOL PER HER REQUEST Addendum entered by Christelle Matthews 08/23/21 16:20: CM ALSO ADDED THE [facility] CRISIS NUMBER TO PTS DC PLAN AND INSTRUCTED HER TO USE IT IF SHE WAS FEELING OVERWHELMED OR UNSAFE Addendum entered by Christelle Matthews 08/23/21 14:55: CM SPOKE TO [facility] AND CONFIRMED THE [facility] SHUTTLE DOES GO TO [place] [facility]. PT REPORTS SHE WOULD BE INTERESTED IN A PCP ON [facility] IF SHE WERE ABLE TO USE THE SHUTTLE TASK SENT TO CM OFFICE TO DETERMINE IF SHE COULD BE CONNECTED WITH AN [facility] PROVIDER Original Note: PT IS A STUDENT AT [employer] WHERE SHE LIVES ON CAMPUS PT DENIES USE OF DME OR SERVICES PT DOES NOT HAVE A PCP AND REPORTS CONCERN THAT SHE WOULD NOT HAVE TRANSPORT TO ONE SHE REPORTS SHE HAS TRIED USING THE ONES ON CAMPUS BUT HAS BEEN UNABLE TO CONNECT SHE ALSO REPORTS SHE HAS TRIED TO USE THE MH SERVICES THERE FOR HER ANXIETY TO NO AVAIL PT IS INTERESTED IN A PSYCH CONSULT WHILE HERE TO HELP MANAGE HER ANXIETY SHE IS ALSO INTERESTED IN BEING CONNECTED WITH A PCP NEAR HER SCHOOL IF POSSIBLE SHE IS AWARE THIS MAY HAPPEN POST DC. PLAN IS TO DC PT HOME TOMORROW (THURSDAY) SHE WILL NEED ASSISTANCE WITH TRANSPORT
[2021-08-23 15:06] VITALS: BP 115/61; PULSE 80; RESP 18; TEMP 36.6; O2SAT 99
--- NOTE | 2021-08-23 19:10 | MHC.CARE ---
CARE Team was consult to meet with pt about her anxiety and depression. Pt reports that she has been struggling with her mental health for the past few years and expressed interest in being connected with outpatient psychiatric providers. CARE Team referred pt to [facility] and provided pt with a pamphlet for CC.
[2021-08-23] MEDS: Escitalopram Oxalate 5 MG TABLET PO (21:04)
--- NOTE | 2021-08-23 21:57 | P.CNPS_ITS ---
History of Present Illness Date of Service: 08/24/21 Chief Complaint: Cyclical vomiting Reason for Consult: medication Requesting physician: Sage Romo Discussed with referring provider: Yes Sources of Information: patient interviewed, chart reviewed and crisis/core team assessment reviewed HPI Narrative: Carlos Manuel is a 21 y.o. female who carries a dx of SJ. She presented to [facility] on 08/22/[address] [facility] due to intractable nausea and vomiting x 3 weeks, wor sening. test was negative. Pt has lost 7 to 8 Ib. Labs are otherwise unremarkable. Medically, pt is cleared. Psych consult placed for medication due to pt presenting with significant anxiety. Utox positive for cannabis, however reports very occasional use. I evaluated the pt this evening and upon interview she reports she has ?a lot of anxiety.? 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 and pt reports her? anxiety has been worsening. She says [place] to [place] was a shock and pt has had several stressful events during her college career, including having a relationship that ended, pt had an , and pt has been increasingly isolated due to the pandemic, has struggled to make friends at college, has not been home in [place] x 2 years. Pt is ambitious and a perfectionist, wants to graduate with highest honors and go to grad school for engineering. Feels she has to get straight As. She also worries about the financial burden of her student loans on her mom. Pt says ?all I do is study,? 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 Pt reports sx of anxiety including panic, nervousness, poor focus, restlessness, cognitive distortions, derealization/ depersonalization, and she wakes up with her heart beating and says this follows her through the day. Her sister suffers from anxiety as well. Pt report hx of wt gain during the pandemic that led to body image issues and disordered eating. Pt currently denies SI/SIB/HI and says she feels safe. Denies irritability/ agitation. Denies psychotic sx. No hx of manic/ hypomanic episodes endorsed.? Medical Evaluation Reviewed: Yes [facility] Medical History (Updated 08/24/21 @ 03:35 by Selene Morris NP) Migraine headache Diagnostics Vital Signs (24Hr): Vital Signs - 24 hr 08/22/21 23:24 08/23/21 07:23 08/23/21 07:37 Temperature 98.1 F 97.1 F Pulse Rate 90 87 Respiratory Rate 14 20 Blood Pressure 120/66 92/47 L 118/82 Pulse Oximetry 98 100 08/23/21 15:06 Temperature 97.8 F Pulse Rate 80 Respiratory Rate 18 Blood Pressure 115/61 Pulse Oximetry 99 BMI result Body Mass Index 21.7 Labs Results: 08/22/21 08:22 08/22/21 08:22 Labs: Laboratory Results - last 48 hr 08/22/21 08/22/21 08/22/21 08:22 08:22 12:46 WBC 9.1 RBC 4.03 L Hgb 12.5 Hct 35.9 L MCV 89.1 MCH 31.0 MCHC 34.8 RDW 11.4 Plt Count 252 MPV 9.8 Immature Gran % (Auto) 0.3 Neut % (Auto) 81.0 H Lymph % (Auto) 15.1 L [place] % (Auto) 3.3 Eos % (Auto) 0.1 Baso % (Auto) 0.2 Lymph # (Auto) 1.4 [place] # (Auto) 0.3 Eos # (Auto) 0.0 Baso # (Auto) 0.0 Abs Immat Gran (auto) 0.03 Absolute Neuts (auto) 7.4 Absolute Nucleated RBC 0.000 Nucleated RBC % (auto) 0.0 Sodium 140 Potassium 4.4 Chloride 106 Carbon Dioxide 24 Anion Gap 14 BUN 10 Creatinine 0.76 Estim Creat Clear Calc 92.6 Estimated GFR > 60 Random Glucose 116 H Calcium 9.4 Total Bilirubin 0.8 Direct Bilirubin 0.3 AST 19 ALT 23 Alkaline Phosphatase 60 Total Protein 7.1 Albumin 4.5 Lipase 34 Urine Color Urine Appearance Urine pH Ur Specific [place] Urine Protein Urine Glucose (UA) Urine Ketones Urine Blood Urine Nitrite Ur Leukocyte Esterase Urine RBC Urine WBC Ur Squamous Epith Cells Urine Bacteria Urine Mucus Urine Test Urine Opiates Screen Urine Fentanyl Screen Ur Barbiturates Screen Ur Phencyclidine Scrn Ur Amphetamines Screen U Benzodiazepines Scrn Urine Cocaine Screen U Marijuana (THC) Screen COVID-19 (PERRY) Negative COVID-19 Clin Com See Note 08/22/21 08/22/21 08/22/21 14:02 14:02 14:02 WBC RBC Hgb Hct MCV MCH MCHC RDW Plt Count MPV Immature Gran % (Auto) Neut % (Auto) Lymph % (Auto) [place] % (Auto) Eos % (Auto) Baso % (Auto) Lymph # (Auto) [place] # (Auto) Eos # (Auto) Baso # (Auto) Abs Immat Gran (auto) Absolute Neuts (auto) Absolute Nucleated RBC Nucleated RBC % (auto) Sodium Potassium Chloride Carbon Dioxide Anion Gap BUN Creatinine Estim Creat Clear Calc Estimated GFR Random Glucose Calcium Total Bilirubin Direct Bilirubin AST ALT Alkaline Phosphatase Total Protein Albumin Lipase Urine Color YELLOW Urine Appearance CLEAR Urine pH 6.0 Ur Specific [place] >= 1.030 H Urine Protein TRACE Urine Glucose (UA) NEG Urine Ketones >=80 Urine Blood TRACE Urine Nitrite NEG Ur Leukocyte Esterase NEG Urine RBC 1-4 Urine WBC 1-4 Ur Squamous Epith Cells 2+ Urine Bacteria TRACE Urine Mucus 1+ Urine Test NEGATIVE Urine Opiates Screen Not Detected Urine Fentanyl Screen Not Detected Ur Barbiturates Screen Not Detected Ur Phencyclidine Scrn Not Detected Ur Amphetamines Screen Not Detected U Benzodiazepines Scrn Not Detected Urine Cocaine Screen Not Detected U Marijuana (THC) Screen POSITIVE H COVID-19 (PERRY) COVID-19 Clin Com Mental Status Exam Mental Status Exam Narrative: A&O. Well groomed, in hospital attire, normal body habitus. Good eye contact, attentive. No Tics or Tremors. No abnormal involuntary movements. Calm, cooperative, engaged. Non-pressured speech, spontaneous with regular rate and rhythm, normal volume and prosody. No prolonged speech latency or dysarthria. Mood is ?anxious,? affect is appropriate. Denies SI/SIB/HI upon inquiry. Denies A/VH or delusional thought content. Thoughts are coherent, organized. No known cognitive or memory impairment. Insight/ Judgment fair and adequate. Medications Medications Current Medications Escitalopram Oxalate (Escitalopram Oxalate 5 Mg Tablet) 5 mg PO BEDTIME TALIA Last Admin: 08/23/21 21:04 Dose: 5 mg Documented by: Dextrose/Sodium Chloride (D51/2ns) 1,000 mls @ 100 mls/hr IVCONT .Q10H TALIA Last Admin: 08/23/21 17:38 Dose: 100 mls/hr Documented by: Ondansetron HCl (Ondansetron Hcl 4 Mg/2 Ml Vial) 4 mg IVPUSH Q8H PRN PRN Reason: Nausea and Vomiting Last Admin: 08/22/21 22:24 Dose: 4 mg Documented by: Pantoprazole Sodium (Pantoprazole Sodium 40 Mg/10 Ml Vial) 40 mg IVPUSH BID@063 0,1630 [facility] Last Admin: 08/23/21 16:11 Dose: 40 mg Documented by: Pharmacy Consult (Consult Rx Perform Med Rec) 1 each MISCELLANE ONCE PRN PRN Reason: Consult order Sodium Chloride (0.9 % Sodium Chloride Flush 3 Ml Syringe) 3 ml IVFLUSH QSHIFT [facility] Last Admin: 08/23/21 15:26 Dose: Not Given Documented by: Allergies Allergies Allergy/AdvReac Type Severity Reaction Status Date / Time No Known Allergies Allergy Verified 08/20/21 05:30 Assessment & Plan Assessment & Plan (1) SJ (generalized anxiety disorder): Status: Acute Code(s): F41.1 - Generalized anxiety disorder Plan Carlos Manuel is a 21 y.o. female who carries a dx of SJ. She presented to [facility] on 08/22/[address] [facility] due to intractable nausea and vomiting x 3 weeks, worsening. Pt's sx appear to be a function of worsening untreated anxiety, has perfectionistic traits. Plan: -Start lexapro at 5 mg x 2 days, then increase to 10 mg QHS for sx of SJ. Reviewed risks and benefits, including black box warning. Discussed CBT techniques. Pt was provided with referral for OP therapy at [facility]. I spent minutes with the patient and/or on the patient floor today, greater than?50% of which was spent counseling/coordinating care. Patient educated on: diagnosis and medication risk/benefits
[2021-08-23 23:38] VITALS: BP 120/64; PULSE 77; RESP 18; TEMP 36.6; O2SAT 99
[2021-08-24] MEDS: Dextrose 5 % and 0.45 % NaCl 1,000 ML 100 ML IVCONT (03:17)
[2021-08-24] MEDS: Pantoprazole Sodium 40 MG/10 ML VIAL IVPUSH (05:56)
[2021-08-24 07:20] VITALS: BP 105/64; PULSE 90; RESP 17; TEMP 36.7; O2SAT 99
--- NOTE | 2021-08-24 08:14 | PM.DS ---
DS: Providers Provider Date of Service: 08/24/21 Date of admission: 08/22/21 11:37 Primary care physician: None Physician Consults: 08/22/21 13:27 Consult to Gastroenterology Routine Consulting Provider: Monique Kebede Reason for consultation: intractable, nausea and vomitting. 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 here with intractable nause and vomitting. Starting 3 weeks ago, she was having episode of vomitting mainly in the morning but the last 3 days or so has been having intractable nausea and vomitting almost every 10 to 15 minutes, theer is no assocated abdominal pain, not associated with food. She does not drink, use drugs or marijuana. She was seen in ED 2 days earlier and discharge with oral zofran and Protonix with litlle relief and overnight? was constantly throwing up so? came back to the ED.. test 2 days ago was negative. As result of the nausea and vomitting she lost nearly all apetite and hardly eating believed she has lost 7 to 8 Ib.. Labs are otherwise unremarkable. Hospital course: She presented with intractable nausea and vomitting, weight loss and overwhelming anxiety and multiple social stressor and does use marijuana on ocasion. Work including labs and EGD was unremarkable.. I suspect that her symptoms and mostly attributed to anxiety and overwhelming ongoing social stresses.. See Psych evaluation for details. She has been evaluated by Psych and will be started on anti depressant/anti anxiety medication with outpatient follow up. She denies suicide thought or ideation. Time Spent with Patient Time attestation: Total time spent providing and/or coordinating discharge services: Discharge coordination time: Greater than 30 minutes Quality: Safe Use of Opioids Does Pt have an Active Cancer Diagnosis on the Problem List?: No Quality: Stroke Does the patient have a stroke diagnosis?: No Physical Exam Vital Signs: Vital Signs: Last Vital Signs Temp 98.0 F 08/24/21 07:20 Pulse 90 08/24/21 07:20 Resp 17 08/24/21 07:20 BP 105/64 08/24/21 07:20 Pulse Ox 99 08/24/21 07:20 BMI result Body Mass Index 21.7 DS: Data Data Completed and Pending Completed studies during hospitalization [Text1]: Pending at discharge 08/22/21 14:56 Surgical [PTH] Routine Discharge Plan Discharge Anticipated Discharge Date/Time: 08/24/21 12:25 Patient Disposition: Home, Self-Care Discharge Diagnosis: intractable nausea and vomiting, SJ Referrals: [facility] [Other] - 1 Week (PLEASE CALL WITH MUCH ADVANCED NOTICE POSSIBLE TO SCHEDULE TRANSPORT TO YOUR APPOINTMENTS ) N CRISIS [Other] - 1 Week (IF YOU ARE FEELING OVERWHELMED OR UNSAFE, YOU CAN CALL THIS NUMBER 01/12) Physician,None [Primary Care Provider] - 1 Week Discharge Medications: New escitalopram oxalate 5 mg Tablet 10 mg PO BEDTIME 30 Days Qty: 60 0RF Continued pantoprazole [Protonix] 40 mg tablet,delayed release (DR/EC) 40 mg PO DAILY@0630 0RF ondansetron 4 mg tablet,disintegrating 4 mg PO Q8H PRN (Reason: Nausea And Vomiting) 0RF Discharge Orders: Discharge Order (Routine); Ordered 08/24/21 Ordered By: Sage Romo Diet: advance to usual diet Activity on Discharge: As tolerated Stand Alone Forms: Patient Portal Discharge page Care Plan Goals: Controll of anxiety Health Concerns: Generalized anxiety desorder Plan of Treatment: Take Lexapro as recommended and follow up with [facility] Assessment: As above Discharge Date/Time: 08/24/21 18:59
[2021-08-24] MEDS: ondansetron HCL 4 MG/2 ML VIAL IVPUSH (09:41)
[2021-08-24] MEDS: Escitalopram Oxalate 5 MG TABLET PO (18:55)
== END 2021-08-24 18:59 | disposition home or self-care (01) ==
LOC: HO.ED 09:41 → HO.EDOVER 11:45 → HO.S3 17:14
PROVIDERS: Internal Medicine Gastroenterology; Admitting Provider Internal Medicine; Emergency Provider Emergency Medicine; Visit Provider Internal Medicine
PROC: 0DJ08ZZ Inspection of Upper Intestinal Tract, Via Natural or Artificial Opening Endoscopic (ICD-10-PCS; CPT 43235; principal; 2021-08-22 15:00)
DX: R11.10 Vomiting, unspecified (principal); K29.70 Gastritis, unspecified, without bleeding; G43.909 Migraine, unspecified, not intractable, without status migrainosus; F41.1 Generalized anxiety disorder; F17.200 Nicotine dependence, unspecified, uncomplicated; Z20.822 Contact with and (suspected) exposure to COVID-19; Z79.899 Other long term (current) drug therapy
CPT/HCPCS: 43239; 36415; 80048; 80076; 80307; 81001; 81025; 83690; 85025; 87635; 88305; 88342; 96361; 96374; 96375; 96376; 99218; 99284; 99285; J0330; J2250; J2405; J3010

== ENCOUNTER 2022-06-30 12:26 | Emergency (ER) | payer BC, SELFPAY ==
--- NOTE | 2022-06-30 12:57 | ED_ITS ---
HPI - Nausea/Vomiting/Diarrhea General Chief complaint: Nausea/Vomiting/Diarrhea <GRETA Munoz Last Filed: 06/30/22 12:59> Stated complaint: Vomiting <GRETA Munoz - Last Filed: 06/30/22 12:59> Time Seen by Provider: 06/30/22 13:03 <GRETA Munoz Last Filed: 06/30/22 12:59> History of Present Illness HPI Narrative: Patient complains of vomiting which began this morning and she has been vomiting frequently but no diarrhea no abdominal pain no fever no headache no recent illness no in else in the family sick She is a college student who does smoke marijuana regularly, denies any other substance denies alcohol <GRETA Baugh Last Filed: 07/27/22 14:53> Related Data Home medications: Home Medications Medication Instructions Recorded Confirmed ondansetron 4 mg disintegrating 4 mg PO Q8H PRN Nausea And Vomiting 08/22/21 08/22/21 tablet pantoprazole 40 mg tablet,delayed 40 mg PO DAILY@0630 08/22/21 08/22/21 release (Protonix) Previous Rx's Medication Instructions Recorded escitalopram oxalate 5 mg tablet 10 mg PO BEDTIME 30 days #60 tabs 08/24/21 lorazepam 1 mg tablet (Ativan) 1 mg PO TID PRN nausea and 06/30/22 vomiting #7 tabs <GRETA Munoz - Last Filed: 06/30/22 12:59> Allergies/Adverse reactions: Allergies Allergy/AdvReac Type Severity Reaction Status Date / Time No Known Allergies Allergy Verified 08/20/21 05:30 <GRETA Munoz Last Filed: 06/30/22 12:59> [facility] Past Medical History Source: nursing notes reviewed <GRETA Baugh - Last Filed: 07/27/22 14:53> Medical History: Medical History (Updated 07/08/22 @ 00:01 by Poonam King) Migraine headache <GRETA Munoz Last Filed: 06/30/22 12:59> Social History Social History: Social History Patient Tobacco Use Status: Current everyday Tobacco user Tobacco use type: Smokeless Tobacco Advance Directives: No Advance Directives Information Provided: No service: No Current occupational status: student <GRETA Munoz - Last Filed: 06/30/22 12:59> Physical Exam Vital Signs: Vital Signs: Last Vital Signs Temp 97.6 F 06/30/22 12:58 Pulse 74 06/30/22 14:49 Resp 16 06/30/22 14:49 BP 117/70 06/30/22 14:49 Pulse Ox 98 06/30/22 14:49 O2 Del Method 06/30/22 14:49 BMI result Body Mass Index 24.7 <GRETA Munoz - Last Filed: 06/30/22 12:59> Vital Signs: Last Vital Signs Temp 97.6 F 06/30/22 12:58 Pulse 74 06/30/22 14:49 Resp 16 06/30/22 14:49 BP 117/70 06/30/22 14:49 Pulse Ox 98 06/30/22 14:49 O2 Del Method 06/30/22 14:49 BMI result Body Mass Index 24.7 <GRETA Baugh - Last Filed: 07/27/22 14:53> General appearance no acute distress Eyes anicteric no pallor Mucous membranes are somewhat dry, pharynx is otherwise normal with no redness swelling or exudate voice normal Neck is supple Chest clear to auscultation bilateral Heart no murmur Abdomen soft nontender Extremities for range of motion x4 no edema Skin no rash Neuro no focal deficits, gait and balance are normal, interaction comprehension expression are normal, motor is 5/5 x4, no facial asymmetry cranial nerves 2-12 intact as tested <GRETA Baugh - Last Filed: 07/27/22 14:53> Course Course Course Narrative: RME - 22 yo female with history of anxiety presents to the ER for evaluation of intractable vomiting since 4am. No associated abdominal pain. No known sick contacts. Actively vomiting in triage. <GRETA Munoz - Last Filed: 06/30/22 12:59> RME - 22 yo female with history of anxiety presents to the ER for ev aluation of intractable vomiting since 4am. No associated abdominal pain. No known sick contacts. Actively vomiting in triage. test was negative, electrolytes were checked and initially there were some abnormalities of anion gap and bicarb with a glucose of 200, this was recheck and the abnormalities corrected themselves after hydration Patient was initially treated with Zofran with out relief, then felt good relief after Benadryl and Reglan, then complained she was feeling nauseous but not vomiting we tried another oral Zofran with no relief and then she was given an Ativan which relieved her nausea and she is tolerating p.o. and was discharged She is advised that if this could be related to frequent cannabis use but no way to know for sure <GRETA Baugh - Last Filed: 07/27/22 14:53> Medications Administered Discontinued Medications Generic Name Dose Route Start Last Admin Trade Name Freq PRN Reason Stop Dose Admin Diphenhydramine HCl 25 mg 06/30/22 14:06 06/30/22 14:17 Diphenhydramine Hcl 50 Mg/Ml Vial IVPUSH 06/30/22 14:07 25 mg ONCE ONE Administration Sodium Chloride 1,000 mls @ 999 mls/hr 06/30/22 13:00 06/30/22 14:25 Ns IVCONT 06/30/22 14:00 Infused .Q1H1M TALIA Infusion Sodium Chloride 1,000 mls @ 999 mls/hr 06/30/22 16:30 06/30/22 16:25 Ns IVCONT 06/30/22 17:30 999 mls/hr .Q1H1M TALIA Administration Lorazepam 1 mg 06/30/22 17:14 06/30/22 17:34 Lorazepam 1 Mg Tablet PO 06/30/22 17:15 1 mg ONCE ONE Administration Metoclopramide HCl 10 mg 06/30/22 14:06 06/30/22 14:17 Metoclopramide Hcl 10 Mg/2 Ml Vial IVPUSH 06/30/22 14:07 10 mg ONCE ONE Administration Ondansetron HCl 4 mg 06/30/22 12:55 06/30/22 13:19 Ondansetron Odt 4 Mg Tab.Rapdis TRANSLINGU 06/30/22 12:56 Not Given ONCE ONE Ondansetron HCl 4 mg 06/30/22 12:59 06/30/22 13:19 Ondansetron Hcl 4 Mg/2 Ml Vial IVPUSH 06/30/22 13:00 4 mg ONCE ONE Administration Ondansetron HCl 4 mg 06/30/22 16:18 06/30/22 16:26 Ondansetron Odt 4 Mg Tab.Rapdis TRANSLINGU 06/30/22 16:19 4 mg ONCE ONE Administration <GRETA Munoz - Last Filed: 06/30/22 12:59> Medications Administered Discontinued Medications Generic Name Dose Route Start Last Admin Trade Name Bhavin PRN Reason Stop Dose Admin Diphenhydramine HCl 25 mg 06/30/22 14:06 06/30/22 14:17 Diphenhydramine Hcl 50 Mg/Ml Vial IVPUSH 06/30/22 14:07 25 mg ONCE ONE Administration Sodium Chloride 1,000 mls @ 999 mls/hr 06/30/22 13:00 06/30/22 14:25 Ns IVCONT 06/30/22 14:00 Infused .Q1H1M TALIA Infusion Sodium Chloride 1,000 mls @ 999 mls/hr 06/30/22 16:30 06/30/22 16:25 Ns IVCONT 06/30/22 17:30 999 mls/hr .Q1H1M TALIA Administration Lorazepam 1 mg 06/30/22 17:14 06/30/22 17:34 Lorazepam 1 Mg Tablet PO 06/30/22 17:15 1 mg ONCE ONE Administration Metoclopramide HCl 10 mg 06/30/22 14:06 06/30/22 14:17 Metoclopramide Hcl 10 Mg/2 Ml Vial IVPUSH 06/30/22 14:07 10 mg ONCE ONE Administration Ondansetron HCl 4 mg 06/30/22 12:55 06/30/22 13:19 Ondansetron Odt 4 Mg Tab.Rapdis TRANSLINGU 06/30/22 12:56 Not Given ONCE ONE Ondansetron HCl 4 mg 06/30/22 12:59 06/30/22 13:19 Ondansetron Hcl 4 Mg/2 Ml Vial IVPUSH 06/30/22 13:00 4 mg ONCE ONE Administration Ondansetron HCl 4 mg 06/30/22 16:18 06/30/22 16:26 Ondansetron Odt 4 Mg Tab.Rapdis TRANSLINGU 06/30/22 16:19 4 mg ONCE ONE Administration <GRETA Baugh - Last Filed: 07/27/22 14:53> Medical Decision Making Lab Data MDM Lab Attestation statement: I reviewed the patient's lab results. <GRETA Baugh - Last Filed: 07/27/22 14:53> Result Diagrams: 06/30/22 13:15 06/30/22 13:15 <GRETA Munoz - Last Filed: 06/30/22 12:59> Labs: Lab Results 06/30/22 06/30/22 06/30/22 Range/Units 13:12 13:12 13:15 WBC 15.2 H (4.8-10.8) X10*3/uL RBC 4.42 (4.20-5.50) X10*6/uL Hgb 13.7 (12.0-16.0) g/dl Hct 39.5 (37.0-47.0) % MCV 89.4 (80.0-98.0) fL MCH 31.0 (27.0-33.0) pg MCHC 34.7 (31.0-35.0) g/dl RDW 11.8 (11.0-16.0) % Plt Count 323 D (160-400) X10*3/uL MPV 10.2 (9.4-12.3) fL Immature Gran % (Auto) 0.4 (0.0-0.4) % Neut % (Auto) 84.5 H (45-73) % Lymph % (Auto) 13.1 L (20-40) % [place] % (Auto) 1.6 L (2-11) % Eos % (Auto) 0.1 (0-4) % Baso % (Auto) 0.3 (0-2) % Lymph # (Auto) 2.0 (1.2-4.9) X10*3/uL [place] # (Auto) 0.3 (0.1-1.2) X10*3/uL Eos # (Auto) 0.0 (0.0-0.4) X10*3/uL Baso # (Auto) 0.0 (0.0-0.2) X10*3/uL Abs Immat Gran (auto) 0.06 H (0.00-0.03) X10*3/uL Absolute Neuts (auto) 12.9 H (2.0-8.3) x10*3/uL Absolute Nucleated RBC 0.000 (0.0-0.012) X10*3/uL Nucleated RBC % (auto) 0.0 (0.0-0.2) /100WBC Sodium (135-145) mmol/L Potassium (3.3-5.1) mmol/L Chloride (96-108) mmol/L Carbon Dioxide (22-29) mmol/L Anion Gap (12-20) BUN (9-16) mg/dL Creatinine (0.5-1.4) mg/dL Estim Creat Clear Calc Estimated GFR POC Glucose (60-115) mg/dL Random Glucose (60-115) mg/dL Calcium (8.4-10.2) mg/dL Magnesium (1.6-2.6) mg/dL Total Bilirubin (0.0-1.0) mg/dL Direct Bilirubin (0.0-0.5) mg/dL AST (5-31) U/L ALT (0-31) U/L Alkaline Phosphatase (39-117) U/L Total Protein (6.5-8.0) g/dL Albumin (3.5-5.0) g/dL Urine Test (NEGATIVE) Urine Opiates Screen (Not Detect) Urine Fentanyl Screen (Not Detect) Ur Barbiturates Screen (Not Detect) Ur Phencyclidine Scrn (Not Detect) Ur Amphetamines Screen (Not Detect) U Benzodiazepines Scrn (Not Detect) Urine Cocaine Screen (Not Detect) U Marijuana (THC) Screen (Not Detect) COVID-19 (PERRY) Negative (Negative) COVID-19 Clin Com See Note Influenza Type A (JUDY) Negative (Negative) Influenza Type B (JUDY) Negative (Negative) Influenza A & B Note See Note 06/30/22 06/30/22 06/30/22 Range/Units 13:15 14:12 14:12 WBC (4.8-10.8) X10*3/uL RBC (4.20-5.50) X10*6/uL Hgb (12.0-16.0) g/dl Hct (37.0-47.0) % MCV (80.0-98.0) fL MCH (27.0-33.0) pg MCHC (31.0-35.0) g/dl RDW (11.0-16.0) % Plt Count (160-400) X10*3/uL MPV (9.4-12.3) fL Immature Gran % (Auto) (0.0-0.4) % Neut % (Auto) (45-73) % Lymph % (Auto) (20-40) % [place] % (Auto) (2-11) % Eos % (Auto) (0-4) % Baso % (Auto) (0-2) % Lymph # (Auto) (1.2-4.9) X10*3/uL [place] # (Auto) (0.1-1.2) X10*3/uL Eos # (Auto) (0.0-0.4) X10*3/uL Baso # (Auto) (0.0-0.2) X10*3/uL Abs Immat Gran (auto) (0.00-0.03) X10*3/uL Absolute Neuts (auto) (2.0-8.3) x10*3/uL Absolute Nucleated RBC (0.0-0.012) X10*3/uL Nucleated RBC % (auto) (0.0-0.2) /100WBC Sodium 139 (135-145) mmol/L Potassium 4.3 (3.3-5.1) mmol/L Chloride 106 (96-108) mmol/L Carbon Dioxide 15 L (22-29) mmol/L Anion Gap 22 H (12-20) BUN 16 (9-16) mg/dL Creatinine 0.78 (0.5-1.4) mg/dL Estim Creat Clear Calc 97.4 Estimated GFR > 60 POC Glucose (60-115) mg/dL Random Glucose 209 H (60-115) mg/dL Calcium 9.9 (8.4-10.2) mg/dL Magnesium 1.8 (1.6-2.6) mg/dL Total Bilirubin 0.7 (0.0-1.0) mg/dL Direct Bilirubin < 0.2 (0.0-0.5) mg/dL AST 39 H (5-31) U/L ALT 51 H (0-31) U/L Alkaline Phosphatase 78 (39-117) U/L Total Protein 8.1 H (6.5-8.0) g/dL Albumin 4.9 (3.5-5.0) g/dL Urine Test NEGATIVE (NEGATIVE) Urine Opiates Screen Not Detected (Not Detect) Urine Fentanyl Screen Not Detected (Not Detect) Ur Barbiturates Screen Not Detected (Not Detect) Ur Phencyclidine Scrn Not Detected (Not Detect) Ur Amphetamines Screen Not Detected (Not Detect) U Benzodiazepines Scrn Not Detected (Not Detect) Urine Cocaine Screen Not Detected (Not Detect) U Marijuana (THC) Screen POSITIVE H (Not Detect) COVID-19 (PERRY) (Negative) COVID-19 Clin Com Influenza Type A (JUDY) (Negative) Influenza Type B (JUDY) (Negative) Influenza A & B Note 06/30/22 06/30/22 Range/Units 16:00 16:28 WBC (4.8-10.8) X10*3/uL RBC (4.20-5.50) X10*6/uL Hgb (12.0-16.0) g/dl Hct (37.0-47.0) % MCV (80.0-98.0) fL MCH (27.0-33.0) pg MCHC (31.0-35.0) g/dl RDW (11.0-16.0) % Plt Count (160-400) X10*3/uL MPV (9.4-12.3) fL Immature Gran % (Auto) (0.0-0.4) % Neut % (Auto) (45-73) % Lymph % (Auto) (20-40) % [place] % (Auto) (2-11) % Eos % (Auto) (0-4) % Baso % (Auto) (0-2) % Lymph # (Auto) (1.2-4.9) X10*3/uL [place] # (Auto) (0.1-1.2) X10*3/uL Eos # (Auto) (0.0-0.4) X10*3/uL Baso # (Auto) (0.0-0.2) X10*3/uL Abs Immat Gran (auto) (0.00-0.03) X10*3/uL Absolute Neuts (auto) (2.0-8.3) x10*3/uL Absolute Nucleated RBC (0.0-0.012) X10*3/uL Nucleated RBC % (auto) (0.0-0.2) /100WBC Sodium 139 (135-145) mmol/L Potassium 3.6 (3.3-5.1) mmol/L Chloride 108 (96-108) mmol/L Carbon Dioxide 19 L (22-29) mmol/L Anion Gap 16 (12-20) BUN 12 (9-16) mg/dL Creatinine 0.68 (0.5-1.4) mg/dL Estim Creat Clear Calc 111.7 Estimated GFR > 60 POC Glucose 109 (60-115) mg/dL Random Glucose 114 (60-115) mg/dL Calcium 9.1 D (8.4-10.2) mg/dL Magnesium (1.6-2.6) mg/dL Total Bilirubin (0.0-1.0) mg/dL Direct Bilirubin (0.0-0.5) mg/dL AST (5-31) U/L ALT (0-31) U/L Alkaline Phosphatase (39-117) U/L Total Protein (6.5-8.0) g/dL Albumin (3.5-5.0) g/dL Urine Test (NEGATIVE) Urine Opiates Screen (Not Detect) Urine Fentanyl Screen (Not Detect) Ur Barbiturates Screen (Not Detect) Ur Phencyclidine Scrn (Not Detect) Ur Amphetamines Screen (Not Detect) U Benzodiazepines Scrn (Not Detect) Urine Cocaine Screen (Not Detect) U Marijuana (THC) Screen (Not Detect) COVID-19 (PERRY) (Negative) COVID-19 Clin Com Influenza Type A (JUDY) (Negative) Influenza Type B (JUDY) (Negative) Influenza A & B Note <GRETA Munoz - Last Filed: 06/30/22 12:59> Lab Results 06/30/22 06/30/22 06/30/22 Range/Units 13:12 13:12 13:15 WBC 15.2 H (4.8-10.8) X10*3/uL RBC 4.42 (4.20-5.50) X10*6/uL Hgb 13.7 (12.0-16.0) g/dl Hct 39.5 (37.0-47.0) % MCV 89.4 (80.0-98.0) fL MCH 31.0 (27.0-33.0) pg MCHC 34.7 (31.0-35.0) g/dl RDW 11.8 (11.0-16.0) % Plt Count 323 D (160-400) X10*3/uL MPV 10.2 (9.4-12.3) fL Immature Gran % (Auto) 0.4 (0.0-0.4) % Neut % (Auto) 84.5 H (45-73) % Lymph % (Auto) 13.1 L (20-40) % [place] % (Auto) 1.6 L (2-11) % Eos % (Auto) 0.1 (0-4) % Baso % (Auto) 0.3 (0-2) % Lymph # (Auto) 2.0 (1.2-4.9) X10*3/uL [place] # (Auto) 0.3 (0.1-1.2) X10*3/uL Eos # (Auto) 0.0 (0.0-0.4) X10*3/uL Baso # (Auto) 0.0 (0.0-0.2) X10*3/uL Abs Immat Gran (auto) 0.06 H (0.00-0.03) X10*3/uL Absolute Neuts (auto) 12.9 H (2.0-8.3) x10*3/uL Absolute Nucleated RBC 0.000 (0.0-0.012) X10*3/uL Nucleated RBC % (auto) 0.0 (0.0-0.2) /100WBC Sodium (135-145) mmol/L Potassium (3.3-5.1) mmol/L Chloride (96-108) mmol/L Carbon Dioxide (22-29) mmol/L Anion Gap (12-20) BUN (9-16) mg/dL Creatinine (0.5-1.4) mg/dL Estim Creat Clear Calc Estimated GFR POC Glucose (60-115) mg/dL Random Glucose (60-115) mg/dL Calcium (8.4-10.2) mg/dL Magnesium (1.6-2.6) mg/dL Total Bilirubin (0.0-1.0) mg/dL Direct Bilirubin (0.0-0.5) mg/dL AST (5-31) U/L ALT (0-31) U/L Alkaline Phosphatase (39-117) U/L Total Protein (6.5-8.0) g/dL Albumin (3.5-5.0) g/dL Urine Test (NEGATIVE) Urine Opiates Screen (Not Detect) Urine Fentanyl Screen (Not Detect) Ur Barbiturates Screen (Not Detect) Ur Phencyclidine Scrn (Not Detect) Ur Amphetamines Screen (Not Detect) U Benzodiazepines Scrn (Not Detect) Urine Cocaine Screen (Not Detect) U Marijuana (THC) Screen (Not Detect) COVID-19 (PERRY) Negative (Negative) COVID-19 Clin Com See Note Influenza Type A (JUDY) Negative (Negative) Influenza Type B (JUDY) Negative (Negative) Influenza A & B Note See Note 06/30/22 06/30/22 06/30/22 Range/Units 13:15 14:12 14:12 WBC (4.8-10.8) X10*3/uL RBC (4.20-5.50) X10*6/uL Hgb (12.0-16.0) g/dl Hct (37.0-47.0) % MCV (80.0-98.0) fL MCH (27.0-33.0) pg MCHC (31.0-35.0) g/dl RDW (11.0-16.0) % Plt Count (160-400) X10*3/uL MPV (9.4-12.3) fL Immature Gran % (Auto) (0.0-0.4) % Neut % (Auto) (45-73) % Lymph % (Auto) (20-40) % [place] % (Auto) (2-11) % Eos % (Auto) (0-4) % Baso % (Auto) (0-2) % Lymph # (Auto) (1.2-4.9) X10*3/uL [place] # (Auto) (0.1-1.2) X10*3/uL Eos # (Auto) (0.0-0.4) X10*3/uL Baso # (Auto) (0.0-0.2) X10*3/uL Abs Immat Gran (auto) (0.00-0.03) X10*3/uL Absolute Neuts (auto) (2.0-8.3) x10*3/uL Absolute Nucleated RBC (0.0-0.012) X10*3/uL Nucleated RBC % (auto) (0.0-0.2) /100WBC Sodium 139 (135-145) mmol/L Potassium 4.3 (3.3-5.1) mmol/L Chloride 106 (96-108) mmol/L Carbon Dioxide 15 L (22-29) mmol/L Anion Gap 22 H (12-20) BUN 16 (9-16) mg/dL Creatinine 0.78 (0.5-1.4) mg/dL Estim Creat Clear Calc 97.4 Estimated GFR > 60 POC Glucose (60-115) mg/dL Random Glucose 209 H (60-115) mg/dL Calcium 9.9 (8.4-10.2) mg/dL Magnesium 1.8 (1.6-2.6) mg/dL Total Bilirubin 0.7 (0.0-1.0) mg/dL Direct Bilirubin < 0.2 (0.0-0.5) mg/dL AST 39 H (5-31) U/L ALT 51 H (0-31) U/L Alkaline Phosphatase 78 (39-117) U/L Total Protein 8.1 H (6.5-8.0) g/dL Albumin 4.9 (3.5-5.0) g/dL Urine Test NEGATIVE (NEGATIVE) Urine Opiates Screen Not Detected (Not Detect) Urine Fentanyl Screen Not Detected (Not Detect) Ur Barbiturates Screen Not Detected (Not Detect) Ur Phencyclidine Scrn Not Detected (Not Detect) Ur Amphetamines Screen Not Detected (Not Detect) U Benzodiazepines Scrn Not Detected (Not Detect) Urine Cocaine Screen Not Detected (Not Detect) U Marijuana (THC) Screen POSITIVE H (Not Detect) COVID-19 (PERRY) (Negative) COVID-19 Clin Com Influenza Type A (JUDY) (Negative) Influenza Type B (JUDY) (Negative) Influenza A & B Note 06/30/22 06/30/22 Range/Units 16:00 16:28 WBC (4.8-10.8) X10*3/uL RBC (4.20-5.50) X10*6/uL Hgb (12.0-16.0) g/dl Hct (37.0-47.0) % MCV (80.0-98.0) fL MCH (27.0-33.0) pg MCHC (31.0-35.0) g/dl RDW (11.0-16.0) % Plt Count (160-400) X10*3/uL MPV (9.4-12.3) fL Immature Gran % (Auto) (0.0-0.4) % Neut % (Auto) (45-73) % Lymph % (Auto) (20-40) % [place] % (Auto) (2-11) % Eos % (Auto) (0-4) % Baso % (Auto) (0-2) % Lymph # (Auto) (1.2-4.9) X10*3/uL [place] # (Auto) (0.1-1.2) X10*3/uL Eos # (Auto) (0.0-0.4) X10*3/uL Baso # (Auto) (0.0-0.2) X10*3/uL Abs Immat Gran (auto) (0.00-0.03) X10*3/uL Absolute Neuts (auto) (2.0-8.3) x10*3/uL Absolute Nucleated RBC (0.0-0.012) X10*3/uL Nucleated RBC % (auto) (0.0-0.2) /100WBC Sodium 139 (135-145) mmol/L Potassium 3.6 (3.3-5.1) mmol/L Chloride 108 (96-108) mmol/L Carbon Dioxide 19 L (22-29) mmol/L Anion Gap 16 (12-20) BUN 12 (9-16) mg/dL Creatinine 0.68 (0.5-1.4) mg/dL Estim Creat Clear Calc 111.7 Estimated GFR > 60 POC Glucose 109 (60-115) mg/dL Random Glucose 114 (60-115) mg/dL Calcium 9.1 D (8.4-10.2) mg/dL Magnesium (1.6-2.6) mg/dL Total Bilirubin (0.0-1.0) mg/dL Direct Bilirubin (0.0-0.5) mg/dL AST (5-31) U/L ALT (0-31) U/L Alkaline Phosphatase (39-117) U/L Total Protein (6.5-8.0) g/dL Albumin (3.5-5.0) g/dL Urine Test (NEGATIVE) Urine Opiates Screen (Not Detect) Urine Fentanyl Screen (Not Detect) Ur Barbiturates Screen (Not Detect) Ur Phencyclidine Scrn (Not Detect) Ur Amphetamines Screen (Not Detect) U Benzodiazepines Scrn (Not Detect) Urine Cocaine Screen (Not Detect) U Marijuana (THC) Screen (Not Detect) COVID-19 (PERRY) (Negative) COVID-19 Clin Com Influenza Type A (JUDY) (Negative) Influenza Type B (JUDY) (Negative) Influenza A & B Note <GRETA Baugh - Last Filed: 07/27/22 14:53> Discharge Plan Discharge Clinical Impression: Vomiting <GRETA Munoz - Last Filed: 06/30/22 12:59> Patient Disposition: Home, Self-Care <GRETA Munoz - Last Filed: 06/30/22 12:59> Additional Instructions: We are not sure what is causing the nausea and vomiting, test was negative, blood tests did not reveal a cause, but Ativan did seem to relieve the nausea We prescribed basic nausea tablet Ativan , Ativan does make you sleepy so no driving for 6 hours after taking Follow with primary doctor Try to restrict cannabis uses it may be the cause but were not sure Return any worse condition or concerns <GRETA Munoz - Last Filed: 06/30/22 12:59> Prescriptions: New lorazepam [Ativan] 1 mg tablet 1 mg PO TID PRN (Reason: nausea and vomiting) Qty: 7 0RF No Action pantoprazole [Protonix] 40 mg tablet,delayed release (DR/EC) 40 mg PO DAILY@0630 ondansetron 4 mg tablet,disintegrating 4 mg PO Q8H PRN (Reason: Nausea And Vomiting) escitalopram oxalate 5 mg Tablet 10 mg PO BEDTIME 30 Days Qty: 60 0RF <GRETA Munoz - Last Filed: 06/30/22 12:59> Stand Alone Forms: Work/School Release <GRETA Munoz - Last Filed: 06/30/22 12:59> Interventions: ED Discharge Assessment Last Done: 06/30/22 18:30 <GRETA Munoz - Last Filed: 06/30/22 12:59> Discharge Date/Time: 06/30/22 18:30 <GRETA Munoz - Last Filed: 06/30/22 12:59>
[2022-06-30 12:58] VITALS: BP 130/107; PULSE 95; RESP 18; TEMP 36.4; O2SAT 99; BMI 24.7
[2022-06-30] MEDS: ondansetron HCL 4 MG/2 ML VIAL IVPUSH (13:19)
[2022-06-30] MEDS: 0.9 % Sodium Chloride 1,000 ML 999 ML IVCONT ×2 (13:19→16:25)
[2022-06-30 13:21] LABS: MANUAL DIFF FLAG NO
[2022-06-30 13:23] LABS: Basophils Percent Auto 0.3 % (0-2); Eosinophils Percent Auto 0.1 % (0-4); Hematocrit 39.5 % (37.0-47.0); Hemoglobin 13.7 g/dl (12.0-16.0); Imm Gran Abs Auto 0.06 X10*3/uL (0.00-0.03); Imm Gran Pct Auto 0.4 % (0.0-0.4); Lymphocytes Percent Auto 13.1 % (20-40); Mean Corpuscular HGB Conc 34.7 g/dl (31.0-35.0); Mean Corpuscular Volume 89.4 fL (80.0-98.0); Mean Platelet Volume 10.2 fL (9.4-12.3); Monocytes Absolute Auto 0.3 X10*3/uL (0.1-1.2); Monocytes Percent Auto 1.6 % (2-11); Neutrophils Absolute Auto 12.9 x10*3/uL (2.0-8.3); Neutrophils Percent Auto 84.5 % (45-73); Platelet Count 323 X10*3/uL (160-400); Red Blood Count 4.42 X10*6/uL (4.20-5.50); Red Cell Distribution Width 11.8 % (11.0-16.0); White Blood Count 15.2 X10*3/uL (4.8-10.8)
[2022-06-30 13:37] LABS: COVID-19 Test Negative (Negative); IDNOW Serial# 16C4AD1C; IDNOW Serial# BCCEAD1C; Influenza A Negative (Negative); Influenza B2 Negative (Negative)
[2022-06-30 13:52] LABS: Alanine Aminotransferase 51 U/L (0-31); Albumin Level 4.9 g/dL (3.5-5.0); Alkaline Phosphatase 78 U/L (39-117); Anion Gap 22 (12-20); Aspartate Amino Transferase 39 U/L (5-31); Bilirubin Direct < 0.2 mg/dL (0.0-0.5); Bilirubin Total 0.7 mg/dL (0.0-1.0); Blood Urea Nitrogen 16 mg/dL (9-16); Calcium 9.9 mg/dL (8.4-10.2); Carbon Dioxide 15 mmol/L (22-29); Chloride 106 mmol/L (96-108); Creatinine Clr Calc Pharmacy 97.4; Estimated Glomerular Filt Rate > 60; Glucose Random 209 mg/dL (60-115); Magnesium 1.8 mg/dL (1.6-2.6); Potassium 4.3 mmol/L (3.3-5.1); Sodium 139 mmol/L (135-145); Total Protein 8.1 g/dL (6.5-8.0)
[2022-06-30] MEDS: diphenhydrAMINE HCL 50 MG/ML VIAL 25 MG IVPUSH (14:17)
[2022-06-30] MEDS: Metoclopramide HCl 10 MG/2 ML VIAL IVPUSH (14:17)
[2022-06-30 14:26] LABS: UPreg QC Valid YES; Urine Pregnancy NEGATIVE (NEGATIVE)
[2022-06-30 14:49] VITALS: BP 117/70; PULSE 74; RESP 16; O2SAT 98
[2022-06-30 15:18] LABS: Amphetamine Screen Urine Not Detected (Not Detect); Barbiturates, Urine Not Detected (Not Detect); Benzodiazepines Screen Urine Not Detected (Not Detect); Cannabinoid Screen Urine POSITIVE (Not Detect); Cocaine Screen Urine Not Detected (Not Detect); Fentanyl, urine Not Detected (Not Detect); Opiate Screen Urine Not Detected (Not Detect); Phencyclidine Screen Urine Not Detected (Not Detect)
[2022-06-30 16:05] LABS: Glucose, Whole Blood 109 mg/dL (60-115)
[2022-06-30] MEDS: Ondansetron ODT 4 MG TAB.RAPDIS TRANSLINGU (16:26)
[2022-06-30 17:03] LABS: Blood Urea Nitrogen 12 mg/dL (9-16); Calcium 9.1 mg/dL (8.4-10.2); Creatinine Clr Calc Pharmacy 111.7; Estimated Glomerular Filt Rate > 60; Glucose Random 114 mg/dL (60-115)
[2022-06-30 17:15] LABS: Anion Gap 16 (12-20); Carbon Dioxide 19 mmol/L (22-29); Chloride 108 mmol/L (96-108); Potassium 3.6 mmol/L (3.3-5.1); Sodium 139 mmol/L (135-145)
[2022-06-30] MEDS: LORazepam 1 MG TABLET PO (17:34)
== END 2022-06-30 18:30 | disposition home or self-care (01) ==
PROVIDERS: Physician Assistant; Physician Assistant Medical; Emergency Provider Emergency Medicine
DX: R11.2 Nausea with vomiting, unspecified (principal); R19.7 Diarrhea, unspecified; F17.200 Nicotine dependence, unspecified, uncomplicated; Z20.822 Contact with and (suspected) exposure to COVID-19; Z20.828 Contact with and (suspected) exposure to other viral communicable diseases; Z71.6 Tobacco abuse counseling; Z79.899 Other long term (current) drug therapy
CPT/HCPCS: 36415; 80048; 80076; 80307; 81025; 82947; 83735; 85025; 87502; 87635; 96361; 96374; 96375; 99283; 99284; J1200; J2405; J2765